=== PATIENT | female | born 1960 | race Caucasian/White ===

== ENCOUNTER 2017-06-08 16:58 | Emergency (ER) | payer MEDICARE ==
[2017-06-08] MEDS ORDERED: Ketorolac INJ* 30 MG/ML 1 ML VIAL IV PUSH ONE (17:17)
[2017-06-08] MEDS ORDERED: NS 0.9% 1000 ML* 2,000 ML IV ONE (17:17)
--- NOTE | 2017-06-08 17:26 | ED ---
Abdominal Pain/Female - HPI Summary HPI Summary: 57F presents with abdominal pain in RLQ since yesterday. She states she moved off the couch and felt that pain. She states since the pain has been constant. It is worst with movement and palpation. She denies any n/v/d/c. She denies every having the pain before. no previous abdominal surgeries. She denies any fever. She has had a normal appetite. She denies any dysuria, hematochezia, melena, flank pain, urgency or frequency. She has not taken anything for the pain. Her pain is 6/10. - History of Current Complaint Chief Complaint: EDAbdPain Stated Complaint: RIGHT ABD PAIN COMING FROM FIVE STAR Time Seen by Provider: 06/08/17 17:09 Pain Intensity: 5 Allergies/Adverse Reactions: Allergies Allergy/AdvReac Type Severity Reaction Status Date / Time Penicillins Allergy Hives Verified 06/08/17 17:08 PMH/Surg Hx/FS Hx/Imm Hx Endocrine/Hematology History: Denies: Hx Anticoagulant Therapy Musculoskeletal History: Reports: Hx Back Problems Infectious Disease History: No Infectious Disease History: Denies: Traveled Outside the [place] in Last 30 Days - Family History Known Family History: Positive: Hypertension Review of Systems Negative: Fever Negative: Chest Pain Negative: Shortness Of Breath Positive: Abdominal Pain. Negative: Vomiting, Diarrhea, Nausea All Other Systems Reviewed And Are Negative: Yes Physical Exam Triage Information Reviewed: Yes Vital Signs On Initial Exam: Initial Vitals Temp Pulse Resp BP Pulse Ox 97.4 F 84 18 124/69 100 06/08/17 17:05 06/08/17 17:05 06/08/17 17:05 06/08/17 17:05 06/08/17 17:05 Vital Signs Reviewed: Yes Appearance: Positive: Well-Appearing Skin: Positive: Warm, Dry Head/Face: Positive: Normal Head/Face Inspection Eyes: Positive: Normal, EOMI, BRITTA, Conjunctiva Clear ENT: Positive: Normal ENT inspection, Pharynx normal, TMs normal Respiratory/Lung Sounds: Positive: Clear to Auscultation, Breath Sounds Present Cardiovascular: Positive: Normal, RRR Abdomen Description: Positive: Soft, Other: - tenderness RLQ moderate, pos rovsings Bowel Sounds: Positive: Present Musculoskeletal: Positive: Normal Neurological: Positive: Normal Psychiatric: Positive: Normal Diagnostics - Vital Signs Vital Signs Temp Pulse Resp BP Pulse Ox 11/23/17 17:05 97.4 F 84 18 124/69 100 - Laboratory Result Diagrams: 06/08/17 17:20 06/08/17 17:20 Lab Statement: Any lab studies that have been ordered have been reviewed, and results considered in the medical decision making process. - CT abd CT Interpretation: Positive (See Comments) - IMPRESSION: 1. There is questionable mild wall thickening at the third portion of the duodenum which could be seen in the setting of duodenitis. 2. There is a large amount of stool throughout the not pathologically dilated colon. Please correlate to signs and symptoms of constipation. CT Interpretation Completed By: Radiologist Re-Evaluation - Re-Evaluation First Eval Re-Evaluation Time: 20:45 Change: Improved Comment: pain is better but is coming back 6/10 Abdominal Pain Fem Course/Dx - Course Course Of Treatment: 57F presents with abdominal pain in RLQ since yesterday. She states she moved off the couch and felt that pain. She states since the pain has been constant. It is worst with movement and palpation. She denies any n/v/d/c. She denies every having the pain before. no previous abdominal surgeries. She denies any fever. She has had a normal appetite. She denies any dysuria, hematochezia, melena, flank pain, urgency or frequency. She has not taken anything for the pain. Her pain is 6/10. on exam has tenderess in RLQ , pos rovings. labs wbc and crp normal. CT shows potential duodenitis and lots of stool. patient states has been having GERD like symptoms so will treat as such. will treat for constipation although patient states has had normal BM today. patient understand and agrees with plan. - Diagnoses Differential Diagnosis: Positive: Appendicitis, Constipation, Urinary Tract Infection Provider Diagnoses: Abdominal pain Discharge - Discharge Plan Condition: Good Disposition: HOME Prescriptions: Omeprazole CAP* [Prilosec CAP* 20 MG] 20 mg PO DAILY #14 cap.dr Jacobo TAB* [Senokot TAB*] 1 tab PO DAILY #14 tab Patient Education Materials: Constipation (ED), Abdominal Pain (ED), Duodenitis (ED) Referrals: No Primary Care Phys,NOPCP [Primary Care Provider] - [facility] [place] [facility]ERR[facility] [Outside] Additional Instructions: Take senna once a day for constipation Take omeprazole once a day in the morning Take Tylenol or ibuprofens for pain Follow up with primary within 5 days Return to ED if develop any new or worsening symptoms
[2017-06-08 17:31] LABS: Hematocrit 37 % (35-47); Hemoglobin 12.5 g/dl (12.0-16.0); Mean Corpuscular HGB Conc 34 g/dl (31-36); Mean Corpuscular Hemoglobin 31 pg (27-31); Mean Corpuscular Volume 91 fL (80-97); Mean Platelet Volume 10 um3 (7.4-10.4); Red Blood Count 4.06 10^6/ul (4.0-5.4); Red Cell Distribution Width 14 % (10.5-15); White Blood Count 7.2 10^3/ul (3.5-10.8)
[2017-06-08 17:45] LABS: Albumin 4.3 g/dL (3.2-5.2); BUN/Creatinine Ratio 19.1 (8-20); Calcium 8.8 mg/dL (8.6-10.3); EGFR African American 84.7 (>60); EGFR Non-African American 65.8 (>60); Globulin 2.2 g/dL (2-4); Potassium 4.1 mmol/L (3.5-5.0); Total Bilirubin 0.2 mg/dL (0.2-1.0); Total Protein 6.5 g/dL (6.4-8.9)
[2017-06-08 18:17] LABS: Urine Bacteria Absent (Absent); Urine Bilirubin Negative (Negative); Urine Glucose Negative (Negative); Urine Nitrite Negative (Negative)
[2017-06-08] MEDS ORDERED: Iohexol 300* (CONTRAST) 10 ML SDV IV ONE (18:17)
[2017-06-08] MEDS ORDERED: Morphine INJ* 4 MG/ML 1 ML CARPUJECT IV ONE (19:37)
--- NOTE | 2017-06-08 20:23 | RAD ---
CLINICAL HISTORY: Right lower quadrant pain since the previous day. COMPARISON: None TECHNIQUE: Contrast enhanced CT examination of the abdomen and pelvis from the lung bases through the initial tuberosities. The patient received 90 mL Omnipaque 300 intravenously prior to imaging.The patient received oral contrast as well prior to imaging. FINDINGS: VISUALIZED LUNG BASES: The visualized lung bases are grossly clear. There is no pleural effusion. ABDOMEN AND PELVIS: The liver, spleen, pancreas and adrenal glands are grossly normal in appearance. The gallbladder is normal. The kidneys are normal in appearance without focal mass, calcification or signs of hydronephrosis. Neural contrast has progressed as far as the base of the cecum. The third portion of the duodenum exhibits mild wall thickening measuring 6 mm in thickness (axial image 35 The small and large bowel are not distended. The partially gas-filled appendix is identified with gas in the lumen measuring just under 5 mm in diameter (coronal image 43 and axial image 62). There is a large amount of stool from the base of the cecum as far as the rectosigmoid colon. A smaller amount of gas and air is seen as far as the rectum. There is no pathologic dilatation of the bowel. There is no gross retroperitoneal or mesenteric lymphadenopathy. The pelvic viscera is normal in appearance. The mildly calcified abdominal aorta and iliac arteries are normal in course and diameter. Degenerative changes include mild multilevel loss of intervertebral disc height involving the lower thoracic and lumbar spine.There are no sinister bone lesions. IMPRESSION: 1. There is questionable mild wall thickening at the third portion of the duodenum which could be seen in the setting of duodenitis. 2. There is a large amount of stool throughout the not pathologically dilated colon. Please correlate to signs and symptoms of constipation.
[2017-06-08 21:20] VITALS: BP 91/45
[2017-06-08] MEDS ORDERED: Senna TAB PO ONE (21:43)
[2017-06-08] MEDS ORDERED: Magnesium CITRATE* 300 ML BTL PO ONE (22:09)
[2017-06-08] MEDS ORDERED: Magnesium CITRATE* 300 ML BTL ONE (22:10)
== END 2017-06-08 22:21 | disposition home or self-care (01) ==
LOC: ED 16:58
DX: R10.9 Unspecified abdominal pain (principal)
CPT/HCPCS: 36415; 74177; 80053; 81003; 81015; 83605; 83690; 85025; 86141; 87086; 96374; 96375; 99283; A9270-GY; J1885; J2270; Q9967